=== PATIENT | female | born 1985 | race American Indian/Alaskan Native ===

== ENCOUNTER 2025-04-12 22:36 | Emergency (ER) | payer SELFPAY ==
[2025-04-12 22:49] VITALS: PULSE 92; O2SAT 100; BMI 23.0
[2025-04-12 22:56] VITALS: BP 113/75; PULSE 92; RESP 20; TEMP 37.2; O2SAT 98
--- NOTE | 2025-04-12 22:59 | XR_ITS ---
Examination: Abdomen sonogram, Limited Date and time of exam: April 12, 2025, 11:12 p.m. INDICATIONS: Onset abdominal pain today, cholecystectomy 16 years ago Technique: Real-time moody scale transabdominal sonographic images of the upper abdomen obtained. Findings: Absent gallbladder Common bile duct normal 0.4 cm Pancreas obscured by bowel gas Liver 16.0 cm smooth contour fatty infiltration Normal hepatopetal portal venous flow Patent IVC IMPRESSION: Absent gallbladder Normal common bile duct
--- NOTE | 2025-04-12 23:00 | PD.EDRME ---
Rapid Medical Screening Exam RME Arrival date/time: 04/12/25 22:36 This is a case of 39-year-old female who came into the emergency room due to right-sided abdominal pain for 3 days associated with nausea vomiting Chief Complaint: Abdominal Pain Time Seen by Provider: 04/12/25 22:57 Vital signs: Vital Signs Temperature 98.9 F 04/12/25 22:56 Pulse Rate 92 04/12/25 22:56 Respiratory Rate 20 04/12/25 22:56 Blood Pressure 113/75 04/12/25 22:56 Pulse Oximetry (%) 98 04/12/25 22:56 Oxygen Delivery Method Room Air 04/12/25 22:56 Exam: Moderate tenderness in the right upper quadrant no guarding no rebound no rigidity Clinical Impression: Abdominal pain
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
[2025-04-12] MEDS: ONDANSETRON INJ 2 MG/ML INJ 2 ML 4 MG IM (23:29)
[2025-04-12] MEDS: MORPHINE SULF INJ 4 MG/ML VIAL IM (23:30)
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
[2025-04-12 23:39] LABS: Basophils # (Auto) 0.0 Thou/mm3 (0.0-0.2); Basophils % (Auto) 0 % (0-2.5); Eosinophils # (Auto) 0.0 Thou/mm3 (0.0-0.5); Eosinophils % (Auto) 0 % (0-10); Hematocrit 33.2 % (36.0-46.0); Hemoglobin 10.6 g/dL (12.0-16.0); Immature Granulocytes Auto 0.03 Thou/mm3 (0.00-0.00); Lymphocytes # (Auto) 1.2 Thou/mm3 (1.0-4.8); Lymphocytes % (Auto) 10 % (10-50); Mean Corpuscular HGB Conc 31.9 g/dl (31.0-37.0); Mean Corpuscular Hemoglobin 27.0 pg (25.0-35.0); Mean Corpuscular Volume 85 fL (80-100); Monocytes # (Auto) 0.9 Thou/mm3 (0.0-0.8); Monocytes % (Auto) 8 % (0-12); Neutrophils # (Auto) 9.7 Thou/mm3 (1.8-7.7); Neutrophils % (Auto) 82 % (37-80); Nucleated Red Blood Cell # 0.00 Thou/mm3 (0.00-0.00); Nucleated Red Blood Cell % 0 /100 WBC (0); Platelet Count 369 Thou/mm3 (140-440); RDW Standard Deviation 39.8 fL (36.4-46.3); Red Blood Count 3.93 Miln/mm3 (4.00-5.20); White Blood Count 11.9 Thou/mm3 (3.6-11.0)
--- NOTE | 2025-04-12 23:40 | XR_ITS ---
EXAMINATION: PA chest single view TECHNIQUE: Upright PA chest single view Date and time: April 13, 2025, 12:00 a.m. INDICATIONS: Right lower chest pain today. FINDINGS: Normal heart size Lungs are clear. Osseous structures are intact. IMPRESSION: No active disease
[2025-04-12 23:57] LABS: Alanine Aminotransferase 20 U/L (10-49); Albumin, Serum 4.1 gm/dL (3.5-5.0); Albumin/Globulin Ratio 0.9 (1.2-2.2); Alkaline Phosphatase 76 U/L (46-116); Anion Gap 8 (7-16); Aspartate Amino Transferase 29 U/L (0-34); BUN/Creatinine Ratio 15 Ratio (12-20); Bilirubin,Total 0.4 mg/dL (0.3-1.2); Blood Urea Nitrogen 16 mg/dL (9-23); Calcium 9.5 mg/dL (8.3-10.6); Calcium (Corrected) 9.5 mg/dL (8.5-10.1); Carbon Dioxide 30.0 mMol/L (20.0-31.0); Chloride 100 mMol/L (98-107); Creatinine (Component) 1.1 mg/dL (0.6-1.3); Estimated Creatinine Clearance 56.2 mL/min (>60); Globulin 4.5 gm/dL (2.3-3.5); Glucose 121 mg/dL (74-106); Lipase 22 U/L (12-53); Osmolality,Calculated 277 (275-295); Potassium 3.7 mMol/L (3.4-5.1); Sodium 138 mMol/L (136-145); Total Protein 8.6 gm/dL (5.7-8.2); eGFR > 60 See Note
--- NOTE | 2025-04-13 00:18 | PC.NURSE ---
[facility] VILA HERE TO SPEAK WITH PATIENT.
--- NOTE | 2025-04-13 01:10 | PRELIM_ITS ---
Gallbladder ultrasound. April 12, 2025 at 2312 hours Clinical history: Right sided abdominal pain x today. Findings: The evaluation is limited as the patient was reportedly not cooperative. The visualized liver measures 16 cm and demonstrates increased echogenicity. There is no intrahepatic biliary duct dilatation. The main portal vein is patent and demonstrates hepatopetal flow. The gallbladder is surgically absent. The common duct is normal in caliber at 4 mm. The pancreas is not visualized. No free fluid is demonstrated on the submitted images. The inferior vena cava is patent to the extent visualized. Impression: Status post cholecystectomy. Fatty infiltration of the liver. Report Electronically Signed By: Alok Hoskins 04/13/2025 1:09:23 AM [EST]
[2025-04-13 02:03] VITALS: BP 102/64; PULSE 96; RESP 18; TEMP 37.3; O2SAT 96
[2025-04-13 02:59] LABS: Collection Type, Urine Clean Catch
[2025-04-13 03:01] VITALS: BP 91/53; PULSE 80; RESP 18; TEMP 36.8; O2SAT 100
[2025-04-13 03:06] LABS: Amorphous Crystals,Urine Present (Absent); Bacteria,Urine 1+; Bilirubin,Urine Negative (Negative); Blood,Urine Negative (Negative); Clarity,Urine Turbid (Clear/Hazy); Color,Urine Yellow (Lt Yel-Yel); Glucose, Urine Negative (Negative); Hyaline Casts,Urine < 1 /hpf (0-1); Ketones,Urine Negative (Negative); Leukocyte Esterase,Urine Positive (Negative); Nitrite,Urine Positive (Negative); PH,Urine 6.5 (5.0-7.0); Protein,Urine 1+ (Neg - Trace); RBC,Urine 9 /hpf (0-3); Specific Gravity,Urine 1.034 (1.001-1.035); Squamous Epithelial Cell,Urine 2 /hpf (0-5); Urobilinogen,Urine 6.0 mg/dL (0.0-1.0); WBC,Urine 69 /hpf (0-5)
[2025-04-13 03:09] LABS: HCG Qualitative,Urine Negative
[2025-04-13 03:10] VITALS: TEMP 36.6
[2025-04-13] MEDS: LIDOCAINE 5% 1 PATCH TOP (03:10)
[2025-04-13] MEDS: KETOROLAC INJ 30 MG/ML VIAL IM (03:10)
== END 2025-04-13 03:36 | disposition home or self-care (01) ==
PROVIDERS: Nurse Practitioner Family; Emergency Provider Emergency Medicine; PCP Physician Assistant
DX: S30.11XA Contusion of abdominal wall, initial encounter (principal); R07.89 Other chest pain; Y04.0XXA Assault by unarmed brawl or fight, initial encounter
CPT/HCPCS: 36415; 71045; 76705; 80053; 81001; 81025; 83690; 85025; 96372; 99283; J1885; J2270; J2405; J3490